=== PATIENT | male | born 1935 | race Caucasian/White ===

== ENCOUNTER 2016-03-19 12:07 | Outpatient (CLI) | payer OTHER ==
[2014-08-30 16:03] VITALS: BMI 23.0
--- NOTE | 2016-03-19 12:36 | DI ---
EXAM: Two views of the chest. History: Lung cancer. Comparison: None available. Findings: Heart size is normal. Atherosclerotic vascular calcifications. Blunting of the left cos tophrenic angle. Nodular density within the right upper lobe measuring 8 mm. No pneumothorax. The no acute osseous abnormalities. Impression: 1. Right upper lung nodule is indeterminate. Recommend contrast enhanced chest CT. 2. Blunting of the left costophrenic angle could be due to small pleural effusion and/or scarring.
== END 2016-03-19 12:08 | disposition home or self-care (01) ==
LOC: RAD 12:07
PROVIDERS: ATTEND Internal Medicine
DX: Z85.118 Personal history of other malignant neoplasm of bronchus and lung (principal)

== ENCOUNTER 2016-03-25 07:31 | Outpatient (CLI) ==
[2014-08-30 16:03] VITALS: BMI 23.0
--- NOTE | 2016-03-25 09:45 | CT ---
EXAM: CT chest with contrast HISTORY: Lung cancer, right upper lobe nodule COMPARISON: Radiograph chest 03/19/2014 TECHNIQUE: CT chest performed with intravenous contrast. Coronal and sagittal reformatted images o btained. FINDINGS: Thyroid and thoracic inlet appear normal. The heart is normal in size. No pericardial e ffusion. There is an enlarged prevascular lymph node measuring 1.2 cm on image 22. There is a smal l hiatal hernia. Aorta normal in caliber with atherosclerosis. Visualized portion upper abdomen de monstrates no acute abnormality. Patient status post cholecystectomy. There is degenerative change in the spine. Central airway is patent. No airspace consolidation. No pleural effusion. No pneu mothorax. Suspect left upper lobectomy with left-sided volume loss. There is right upper lobe scarri ng. Corresponding to the radiographic finding, there is an ill-defined nodule in the right upper lo be measuring 0.8 cm on image 17 with additional right upper lobe nodule measuring 0.4 cm on image 11 . There calcified pleural plaques on the left. IMPRESSION: 1. Radiographic finding corresponds to a right upper lobe nodule measuring 0.8 cm, indeterminate. There is additional 0.4 cm right upper lobe nodule present. Right upper lobe scarring present. CT c hest follow-up is recommended in 3 months for reevaluation. 2. Enlarged mediastinal lymph node/lymphadenopathy, indeterminate. Recommend attention on follow-u p. 3. Severe centrilobular emphysema. 4. Suspect left upper lobectomy . 5. Calcified pleural plaques, consistent with prior asbestos exposure. 6. Small hiatal hernia.
== END 2016-03-25 07:32 | disposition home or self-care (01) ==
LOC: RAD 07:31
PROVIDERS: ATTEND Internal Medicine
DX: R91.1 Solitary pulmonary nodule (principal); Z85.118 Personal history of other malignant neoplasm of bronchus and lung